=== PATIENT | female | born 1995 | race Caucasian/White ===

== ENCOUNTER 2017-03-15 22:48 | Emergency (ER) | payer MEDICAID ==
[~2017-03-15] VITALS: Ht 157.5 cm; Wt 52.2 kg
[2017-03-15] MEDS ORDERED: NKM (23:10)
[2017-03-15] MEDS ORDERED: AUGMENTIN 875-1 EAC1 ORAL (23:25)
[2017-03-15] MEDS ORDERED: IBUPROFEN600 MG ORAL (23:25)
--- NOTE | 2017-03-15 23:26 | Emergency Room Report ---
History of Present Illness General Chief Complaint: Fever Source: Patient Present Illness HPI Is a 21-year-old female with no past medical history. She presents with chief complaint of swelling to the neck and fever. Onset today. No nausea no vomiting. No cough or congestion. Tolerating liquid. Denies any other complaint. She is breast-feeding. Allergies: Coded Allergies: No Known Allergies (Unverified , 03/15/17) Patient History Past Medical History: see triage record, old chart reviewed Past Surgical History: none Pertinent Family History: none Social History: Denies: smoking Last Menstrual Period: unk Now: No Immunizations: other Reviewed Nursing Documentation: PMH: Agreed, PSxH: Agreed Nursing Documentation-PMH Past Medical History: No Stated History Review of Systems Constitutional: Reports: fever Eye: Denies: blurred vision, eye pain ENT: Denies: ear pain, nose congestion, throat swelling Respiratory: Denies: cough, shortness of breath Cardiovascular: Denies: chest pain, palpitations Gastrointestinal: Denies: abdominal pain, diarrhea, nausea, vomiting Musculoskeletal: Denies: back pain, joint pain Skin: Denies: rash Neurological: Denies: headache, numbness Endocrine: Denies: increased thirst, increased urine Hematologic/Lymphatic: Denies: easy bruising All Other Systems: negative except mentioned in HPI Physical Exam Vital Signs Date Time Temp Pulse Resp B/P Pulse Ox O2 Delivery O2 Flow Rate FiO2 03/15/17 23:04 99.7 103 18 113/77 99 Room Air vitals with a low-grade fever Sp02 EP Interpretation: reviewed, normal General Appearance: well appearing, no apparent distress, alert Head: normocephalic, atraumatic Eyes: bilateral eye EOMI, bilateral eye PERRL ENT: hearing grossly normal, normal pharynx, other - No trismus. Tonsil normal. Neck: full range of motion, supple, no meningismus, other - Right submental adenopathy. Also with anterior cervical adenopathy. Respiratory: chest non-tender, lungs clear, normal breath sounds Cardiovascular #1: regular rate, rhythm, no murmur Gastrointestinal: normal bowel sounds, non tender, no mass, no organomegaly, no bruit, non-distended Musculoskeletal: back normal, gait/station normal, normal range of motion Psychiatric: mood/affect normal Skin: warm/dry Medical Decision Making Diagnostic Impression: Primary Impression: Adenitis, acute ER Course Patient with acute adenitis. I see no evidence of peritonsillar abscess. She may have a retropharyngeal abscess. She looks well. She does not want to stay because she has a baby at home. She is competent to leave. I wanted to get labs and CT scan. She agreed to come back if symptom worsen. Last Vital Signs Date Time Temp Pulse Resp B/P Pulse Ox O2 Delivery O2 Flow Rate FiO2 03/15/17 23:04 99.7 103 18 113/77 99 Room Air Status: improved Disposition: HOME, SELF-CARE Condition: Stable Scripts Ibuprofen* (MOTRIN*) 600 Mg Tablet 600 MG ORAL Q8H Y for For Pain, #30 TAB 0 Refills Prov: SILVER CASTORENA M.D. 03/15/17 Amoxicillin/Potassium Clav 875-125* (AUGMENTIN 875-125 TABLET*) 1 Each Tablet 1 TAB ORAL TWICE A DAY, #14 TAB Prov: SILVER CASTORENA M.D. 03/15/17 Additional Instructions: Followup your Dr. in 2-3 days. Return for increasing fever, increasing pain, or unable to open your mouth. Return if worse. SILVER CASTORENA M.D. March 15, 2017 23:25
[2017-03-15] MEDS ORDERED: Augmentin 875mg Tab ORAL ONE (23:30)
[2017-03-15 23:42] VITALS: BP 118/78
[2017-03-15 23:43] VITALS: BP 113/77
== END 2017-03-15 23:40 | disposition home or self-care (01) ==
LOC: EMR 23:35
DX: L04.9 Acute lymphadenitis, unspecified (principal); R50.9 Fever, unspecified
CPT/HCPCS: 99283

== ENCOUNTER 2017-03-18 13:49 | Emergency (ER) | payer MEDICAID ==
[~2017-03-18] VITALS: Ht 157.5 cm; Wt 52.2 kg
[~2017-03-18 13:49] MED LIST: AUGMENTIN 875-1 EAC1 ORAL; IBUPROFEN600 MG ORAL; NKM
[2017-03-18 15:03] LABS: BASOPHILS % (AUTO) 0.6 % (0.0-2.0); EOSINOPHILS % (AUTO) 0.3 % (0.0-3.0); LYMPHOCYTES % (AUTO) 27.9 % (20.0-45.0); MEAN CORPUSCULAR HEMOGLOBIN 28.3 PG (27.0-31.0); MEAN CORPUSCULAR HGB CONC 34.4 G/DL (32.0-36.0); MEAN CORPUSCULAR VOLUME 82 FL (80-99); MEAN PLATELET VOLUME 7.3 FL (6.5-10.1); MONOCYTES % (AUTO) 11.4 % (1.0-10.0); NEUTROPHILS % (AUTO) 59.8 % (45.0-75.0); PLATELET COUNT 182 K/UL (150-450); RED BLOOD COUNT 4.42 M/UL (4.20-5.40); RED CELL DISTRIBUTION WIDTH 10.6 % (11.6-14.8); WHITE BLOOD COUNT 6.1 K/UL (4.8-10.8)
--- NOTE | 2017-03-18 15:15 | Emergency Room Report ---
History of Present Illness General Chief Complaint: Sore Throat Source: Patient Present Illness HPI 21 YO Female presents to the ED c/o : sore throat, right sided throat swelling, and painful swallowing since being seen Friday evening and being rx'd oral abx. pt. has taken abx and IBU at 7:30 am this morning. pt states her symptoms have not improved and was told to return to ED for further evaluation if symptoms do not improve. Pt. reports intermittent fevers and chills that respond well to oral IBU. pt. states she has been taking medications as prescribed. reports localized right sided throat pain 9/10 in severity with swelling. denies ill contacts or recent travel. pt. states she is UTD with vaccinations. pt. reports that she is currently breast feeding. Denies n/v/ abdominal pain, rashes, , neck pain or stiffness. denies hx of smoking, thyroid dysfunction or cancer. Denies CP, Palpitations, LOC, AMS, dizziness, Changes in Vision, Sensation, paresthesias, or a sudden severe headache. Allergies: Coded Allergies: No Known Allergies (Unverified , 03/15/17) Patient History Past Medical History: see triage record Past Surgical History: none Pertinent Family History: none Last Menstrual Period: none now Now: No Immunizations: UTD Reviewed Nursing Documentation: PMH: Agreed, PSxH: Agreed Nursing Documentation-PMH Past Medical History: No Stated History Review of Systems All Other Systems: negative except mentioned in HPI Physical Exam Vital Signs Date Time Temp Pulse Resp B/P Pulse Ox O2 Delivery O2 Flow Rate FiO2 03/18/17 14:08 99.1 103 20 134/88 97 Room Air Sp02 EP Interpretation: reviewed, abnormal - tachycardic at 103 bpm General Appearance: alert, GCS 15, non-toxic, mild distress Head: normocephalic, atraumatic Eyes: bilateral eye PERRL, bilateral eye normal inspection ENT: hearing grossly normal, normal pharynx, no angioedema, normal voice, TMs + canals normal, uvula midline Neck: full range of motion, no meningismus, no bony tend, supple/symm/no masses , other - cervical and submandibular LAD Respiratory: chest non-tender, lungs clear, normal breath sounds, speaking full sentences Cardiovascular #1: regular rate, rhythm, no edema Musculoskeletal: back normal, gait/station normal, normal range of motion, non- tender Neurologic: alert, oriented x3, responsive, motor strength/tone normal, sensory intact, speech normal Psychiatric: judgement/insight normal, memory normal, mood/affect normal Skin: normal color, no rash, warm/dry, well hydrated Lymphatic: adenopathy - cervical and submandibular LAD Medical Decision Making PA Attestation Dr. Munguia is my supervising Physician whom patient management has been discussed with. Diagnostic Impression: Primary Impression: Sore throat Additional Impression: Opacity of lung on imaging study ER Course Pt. presents to the ED c/o : sore throat, right sided throat swelling, and painful swallowing since being seen friday evening and being rx'd oral abx. pt. has taken abx and IBU at 7:30 am this morning. pt states her symptoms have not improved and was told to return to ED for further evaluation if symptoms do not improve. Ddx considered but are not limited to: pharyngitis, strep, ANIMAL DOCTOR, retropharyngeal abscess, ludwigs angina, URI Vital signs: Pt. is afebrile however tachycardic H&PE are most consistent with: possible retropharyngeal abscess. -- Upon re-evaluation VS: pt. continues to be tachycardic and is now febrile at 100.6 ORDERS: - CBC: unremarkable ,no evidence of leukocytosis -BMP: unremarkable pt. has good renal function and is a candidate for iv contrast. -CT Soft tissues Neck with Contrast: negative for abscess, lymphadenopathy noted , in addition to incidental 4mm lung opacity. -- per official radiology read. ED INTERVENTIONS: -8mg Decadron IV -D/W pt. the results of CT imaging study including incidental finding of lung opacity. d/w pt. proper follow up with her PCP. DISCHARGE: At this time pt. is stable for d/c to home. Will provide printed patient care instructions, and any necessary prescriptions. Care plan and follow up instructions have been discussed with the patient prior to discharge. Labs Test 03/18/17 14:50 White Blood Count 6.1 K/UL (4.8-10.8) Red Blood Count 4.42 M/UL (4.20-5.40) Hemoglobin 12.5 G/DL (12.0-16.0) Hematocrit 36.4 % (37.0-47.0) Mean Corpuscular Volume 82 FL (80-99) Mean Corpuscular Hemoglobin 28.3 PG (27.0-31.0) Mean Corpuscular Hemoglobin Concent 34.4 G/DL (32.0-36.0) Red Cell Distribution Width 10.6 % (11.6-14.8) Platelet Count 182 K/UL (150-450) Mean Platelet Volume 7.3 FL (6.5-10.1) Neutrophils (%) (Auto) 59.8 % (45.0-75.0) Lymphocytes (%) (Auto) 27.9 % (20.0-45.0) Monocytes (%) (Auto) 11.4 % (1.0-10.0) Eosinophils (%) (Auto) 0.3 % (0.0-3.0) Basophils (%) (Auto) 0.6 % (0.0-2.0) Sodium Level 141 mEQ/L (135-145) Potassium Level 4.5 mEQ/L (3.4-4.9) Chloride Level 101 mEQ/L (98-107) Carbon Dioxide Level 24 mEQ/L (20-30) Anion Gap 16 (5-15) Blood Urea Nitrogen 10 mg/dL (7-23) Creatinine 0.6 mg/dL (0.5-0.9) Estimat Glomerular Filtration Rate > 60 mL/min (>60) Glucose Level 146 mg/dL (74-106) Calcium Level 8.8 mg/dL (8.6-10.2) Last Vital Signs Date Time Temp Pulse Resp B/P Pulse Ox O2 Delivery O2 Flow Rate FiO2 03/18/17 14:08 99.1 103 20 134/88 97 Room Air Disposition: HOME, SELF-CARE Condition: Stable Scripts Acetaminophen* (TYLENOL EXTRA STRENGTH*) 500 Mg Tablet 500 MG ORAL Q6H Y for Mild Pain/Temp > 100.5, #20 TAB 0 Refills Prov: Veronica Dowell 03/18/17 Referrals: [facility],REFERRING (PCP) Patient Instructions: Lymphadenopathy, Sore Throat Additional Instructions: Take medications as directed. Follow up with PCP in 3-5 days Return sooner to ED if new symptoms occur, or current symptoms become worse. - Please note that this Emergency Department Report was dictated using [employer] filler technology software, occasionally this can lead to erroneous entry secondary to interpretation by the dictation equipment. Veronica Dowell March 18, 2017 15:15
[2017-03-18 15:26] LABS: ANION GAP 16 (5-15); CALCIUM 8.8 mg/dL (8.6-10.2); CARBON DIOXIDE 24 mEQ/L (20-30); CHLORIDE 101 mEQ/L (98-107); CREATININE 0.6 mg/dL (0.5-0.9); GLOMERULAR FILTRATION RATE > 60 mL/min (>60); HEMOLYSIS 3; POTASSIUM 4.5 mEQ/L (3.4-4.9); SODIUM 141 mEQ/L (135-145)
[2017-03-18] MEDS ORDERED: Dexamethasone 4mg/ml vial IVP ONE (15:30)
[2017-03-18] MEDS ORDERED: TYLENOL EXTRA500 MG ORAL (17:06)
[2017-03-18 17:13] VITALS: BP 127/84
[2017-03-18 17:14] VITALS: BP 134/88
--- NOTE | 2017-03-19 10:55 | Diagnostic Imaging Report ---
Indication: PAIN also throat, fever x4 days, swollen glands, painful swallowing Technique: IV administration nonionic contrast. Spiral acquisitions obtained through the Multiplanar reconstructions were generated. Total dose length product 45 mGycm. CTDIvol(s) 18 mGy. Radiation dose was minimized using automated exposure control Comparison: None Findings: No prevertebral soft tissue swelling. Visualized portions of the nasopharynx are unremarkable. There is slight tonsillar prominence, equivocal slight left tonsillar heterogeneity, but no discrete collections to suggest abscess. The hypopharynx and larynx are unremarkable. The trachea and cervical and proximal thoracic esophagus are unremarkable. There is cervical adenopathy, with largest node on the right measuring 2.8 cm long axis dimension, largest node on the left measures 1.8 cm long axis dimension. The salivary glands are unremarkable. The thyroid is unremarkable. The included sinuses are clear. The bones are unremarkable. The right lung demonstrates a triangular peripheral opacity, image 71 series 4 windows lung windows, measuring 4 mm in diameter. The upper mediastinum is unremarkable. The upper chest wall and supraclavicular regions are unremarkable. The vascular structures are unremarkable. The parapharyngeal spaces are clear, symmetric. Impression: Minimal tonsillar swelling. No evidence of retropharyngeal or parapharyngeal abscess Right greater than left lymphadenopathy, most likely reactive. Clinical followup is recommended. Peripheral 4 mm opacity in the upper lobe the right lung. If there is no significant smoking history or other risk factors for lung carcinoma, no further followup is necessary. If there is significant risk factors for lung carcinoma, recommend followup in 6-[address] scanner at [facility] is accredited by the [employer] and the scans are performed using protocols designed to limit radiation exposure to as low as reasonably achievable to attain images of sufficient resolution adequate for diagnostic evaluation.
== END 2017-03-18 17:15 | disposition home or self-care (01) ==
LOC: EMR 14:31
DX: J02.9 Acute pharyngitis, unspecified (principal); R91.8 Other nonspecific abnormal finding of lung field
CPT/HCPCS: 36415; 70491; 80048; 85025; 96374; 99284; J1100; Q9967

== ENCOUNTER 2017-09-27 20:22 | Emergency (ER) | payer MEDICAID, OTHER ==
[~2017-09-27] VITALS: Ht 157.5 cm; Wt 49.9 kg
[~2017-09-27 20:22] MED LIST changes: +TYLENOL EXTRA500 MG ORAL
--- NOTE | 2017-09-27 20:52 | Emergency Room Report ---
History of Present Illness General Chief Complaint: Vaginal Source: Patient Present Illness HPI Patient is a 22-year-old female who presented after increased vaginal itching and discharge. Patient had gradual onset of symptoms the past 3-4 days. Patient not been recently on antibiotics. Patient not having any fever. She denied any prior history of gestational diabetes. She reports having some discomfort. She states that she had had not had a period since last delivery. The patient states that she has not been having any pain. Patient states that she has not seen her OB recently. Allergies: Coded Allergies: No Known Allergies (Unverified , 03/15/17) Patient History Past Medical History: see triage record Last Menstrual Period: december 2015 Reviewed Nursing Documentation: PMH: Agreed, PSxH: Agreed Nursing Documentation-PMH Past Medical History: No Stated History Review of Systems All Other Systems: negative except mentioned in HPI Physical Exam Vital Signs Date Time Temp Pulse Resp B/P (MAP) Pulse Ox O2 Delivery O2 Flow Rate FiO2 09/27/17 20:25 98.2 107 16 108/66 98 Room Air General Appearance: well appearing, no apparent distress, alert, GCS 15 Head: normocephalic, atraumatic ENT: hearing grossly normal, normal voice Neck: full range of motion, supple Respiratory: no respiratory distress, speaking full sentences Cardiovascular #1: normal inspection Gastrointestinal: normal inspection, normal bowel sounds, non tender, soft Musculoskeletal: no calf tenderness Neurologic: normal gait Psychiatric: mood/affect normal Skin: no rash Medical Decision Making Diagnostic Impression: Primary Impression: Yeast infection Additional Impression: ER Course Patient presented for vaginal discharge. Differential diagnosis included was not limited to yeast infection, bacterial vaginosis, Trichomonas, among others. Patient's benign exam and does not appear to require any further imaging or laboratory testing at this time. A bedside ultrasound showed intrauterine withfetal heart tones patient was given Diflucan by mouth. Patient was advised followup with her [employer] TECHNICIAN for recheck in the next few days. Patient was noted to be not bleeding. Last Vital Signs Date Time Temp Pulse Resp B/P (MAP) Pulse Ox O2 Delivery O2 Flow Rate FiO2 09/27/17 20:25 98.2 107 16 108/66 98 Room Air Status: improved Disposition: HOME, SELF-CARE Condition: Stable Kemar Yoder Sep 27, 2017 20:52
[2017-09-27] MEDS ORDERED: Fluconazole 100mg tab ORAL ONE (21:00)
[2017-09-27 21:08] VITALS: BP 110/68
== END 2017-09-27 21:07 | disposition home or self-care (01) ==
LOC: EMR 20:40
DX: B37.3 Candidiasis of vulva and vagina (principal)
CPT/HCPCS: 99283